=== PATIENT | male | born 1940 | race Caucasian/White ===

== ENCOUNTER 2020-09-12 11:47 | Emergency (ER) | payer MEDICARE, BC ==
[2020-09-12] MEDS ORDERED: Piperacillin/Tazobactam 4.5 GM in Sodium Chloride 0.9% 100 ML IVPB SCH (12:00)
[2020-09-12 12:14] LABS: Actual Bicarbonate (HCO3a) 18.7 mEq/L (22-28); Analyzer IN Cardio ER; Base Excess (BEa) -5.8 mEq/L (-2.0 to +3.0); CO2 Tension 31.9 mmHg (35.0-45.0); Calcium, Ionized (arterial) 1.07 mmol/L (1.12-1.30); Carboxyhemoglobin (COHb) 1.7 gm% (0.0-3.0); O2 Tension (PaO2), arterial 150.6 mmHg (> 70.0); Potassium - ABG Lab 4.92 mmol/L (3.70-5.30); pH, Arterial 7.39 (7.35-7.45)
[2020-09-12] MEDS ORDERED: Piperacillin/Tazobactam 4.5 GM VIAL ONE (12:14)
[2020-09-12 12:15] LABS: Hemoglobin (Hb) 5.7 g/dL (14.0-18.0); Puncture Site LBA
[2020-09-12] MEDS ORDERED: Sodium Chloride 0.9% 1,000 ML IV SCH (12:15)
[2020-09-12 12:17] LABS: Hemoglobin 5.6 g/dL (14.0-18.0); Mean Corpuscular HGB CONC 30.6 g/dL (32.0-36.0); Mean Corpuscular Hemoglobin 25.3 pg (27.0-31.0); Mean Corpuscular Volume 82.8 fL (78.0-98.0); Platelet Count 86 thou/uL (130-400); RBC Distribution Width 18.1 % (11.5-14.5); Red Blood Cell (RBC) Count 2.21 mill/uL (4.70-6.10); White Blood Cell (WBC) Count 5.4 thou/uL (4.8-10.8)
[2020-09-12 12:18] LABS: INR-International Normal Ratio 2.1; Prothrombin Time 24.1 sec (12.0-14.7)
[2020-09-12 12:19] LABS: PTT 57.7 sec (22.9-36.1)
[2020-09-12 12:20] LABS: ALV-art Gradient 37.685 mmHg (0-20)
[2020-09-12 12:24] LABS: Bilirubin Negative (Negative); Blood, Urine 2+ (Negative); Clarity Extra Turbid (Clear); Glucose, Urine (Dipstick) Normal (Negative); Ketone, Urine Negative (Negative); Leukocyte 500 Leu/uL (Negative); Nitrite Negative (Negative); Protein, Urine (Dipstick) 70 mg/dL (Neg-Trace); RBC/HPF 21-50 HPF (0-3); Specific Gravity, Urine 1.021 (1.002-1.036); Squamous Epithelial 0-3 HPF (0-3); Urobilinogen 3 mg/dL (Less than 2); WBC/HPF Greater than 50 HPF (0-3); pH, Urine 5.5 (5.0-9.0)
[2020-09-12] MEDS ORDERED: Sodium Bicarb 50 MEQ/50 ML Abboject 8.4% SYRINGE ONE (12:24)
[2020-09-12] MEDS ORDERED: Atropine Sulfate 1 mg/10 ml Syringe ONE (12:24)
[2020-09-12] MEDS ORDERED: EPINEPHrine 1 MG/10 ML Abboject SYRINGE ONE ×2 (12:24→14:24)
[2020-09-12] MEDS ORDERED: Vancomycin 1.5 GRAM/300 ML BAG 1.5 GM in Premix Bag 1 BAG IVPB SCH (12:30)
[2020-09-12 12:33] LABS: ALT (SGPT) 8 U/L (8-55); AST (SGOT) 10 U/L (5-34); Albumin 2.6 g/dL (3.4-4.8); Alkaline Phosphatase 107 U/L (40-110); Anion Gap 13 mmol/L (10-20); BUN (Urea Nitrogen) 63 mg/dL (8.4-25.7); Bacteria/HPF Rare-Few HPF (None Seen); Calc. Creatinine Clearance 0 mL/min (70-130); Calcium 7.9 mg/dL (7.8-10.44); Carbon Dioxide 22 mmol/L (23-31); Chloride 110 mmol/L (98-107); Globulin 2.5 g/dL (2.4-3.5); Glucose 195 mg/dL (83-110); Potassium 5.2 mmol/L (3.5-5.1); Protein, Total 5.1 g/dL (5.8-8.1); Sodium 140 mmol/L (136-145); Yeast-Budding 1+ HPF (None Seen)
[2020-09-12 12:38] LABS: Band 13 % (5-11); Eosinophils 2 % (0-10); Hypochromia MODERATE=16-30 cells (100X) (0-5/hpf); Large Platelets SLIGHT; Lymphocytes 12 % (21-51); MDiff Complete? YES; Monocytes 12 % (0-10); Neutrophil 60 % (42-75); Nucleated RBC 1 % (0); Platelet Morphology Comment Appears Decreased; Polychromasia SLIGHT = 2-3 cells (100X) (0-2/hpf); Reflex for Review?? YES
[2020-09-12] MEDS ORDERED: Rocuronium Bromide 10 MG/ML (10ML VIAL) ONE (14:11)
[2020-09-12] MEDS ORDERED: Ketamine 50 MG/ML (10ML VIAL) ONE (14:11)
[2020-09-12] MEDS ORDERED: Norepinephrine 8 MG/0.9% NS 250 ML ONE (14:41)
[2020-09-12] MEDS ORDERED: fentaNYL Citrate/PF 2,000 MCG in Sodium Chloride 0.9% 60 ML IV SCH (14:45)
[2020-09-12] MEDS ORDERED: Magnesium 2 GM/50 ML BAG (IN WATER) ONE (14:57)
[2020-09-12 14:59] LABS: SARS-CoV-2 NAA Rapid Test Not Detected (NotDetected)
[2020-09-12 15:02] LABS: Lactic Acid 6.1 mmol/L (0.5-2.2)
[2020-09-12] MEDS ORDERED: DOPamine 400 MG/D5W 250 ML 0 ML ONE (15:02)
[2020-09-12] MEDS ORDERED: Pantoprazole 40 MG VIAL IVP SCH ×2 (16:00→21:00)
[2020-09-12] MEDS ORDERED: Piperacillin/Tazobactam 3.375 GM in Sodium Chloride 0.9% 100 ML IVPB SCH (18:00)
== END 2020-09-12 15:30 | disposition expired ==
LOC: ERS 11:47
DX: A41.9 Sepsis, unspecified organism (principal); R65.20 Severe sepsis without septic shock; D64.9 Anemia, unspecified; G93.40 Encephalopathy, unspecified; Z20.822 Contact with and (suspected) exposure to COVID-19; Z79.899 Other long term (current) drug therapy; Z79.82 Long term (current) use of aspirin; Z79.01 Long term (current) use of anticoagulants; Z79.4 Long term (current) use of insulin; I25.10 Atherosclerotic heart disease of native coronary artery without angina pectoris; E11.9 Type 2 diabetes mellitus without complications; I10 Essential (primary) hypertension
CPT/HCPCS: 0240U; 31500; 36430; 36556; 36600; 36680; 51702; 71045; 80053; 82805; 83605; 85025; 85610; 85730; 86850; 86900; 86901; 86920; 87040; 87086; 92950; 93005; 94002; 96365; 96367; 96375; 96376; 99291; J3010; P9016; 36415; 81003; 81015; 85060; J0171; J0461; J1265; J2543; J3370; J3475; J3490